=== PATIENT | male | born 1985 | race Caucasian/White ===

== ENCOUNTER 2020-06-18 14:22 | Outpatient (REF) | payer OTHER, SELFPAY | END 2020-06-18 14:23 | disposition home or self-care (01) | LOC: HO.LAB 14:22 | PROVIDERS: Visit Provider Internal Medicine | DX: Z20.828 Contact with and (suspected) exposure to other viral communicable diseases (principal) | CPT/HCPCS: 36415; C9803; U0003 ==

== ENCOUNTER → 2020-07-30 15:07 | Outpatient (BNVA) | payer OTHER, SELFPAY | PROVIDERS: PCP Internal Medicine; Visit Provider Urology ==

== ENCOUNTER → 2020-08-28 14:43 | Outpatient (BNVA) | payer OTHER, SELFPAY | PROVIDERS: PCP Internal Medicine; Visit Provider Urology | DX: N35.919 Unspecified urethral stricture, male, unspecified site (principal) | CPT/HCPCS: 52000; 99212 ==

== ENCOUNTER 2020-09-10 09:50 | Outpatient (REF) | payer OTHER, SELFPAY ==
[2020-09-10 12:30] LABS: SARS COV2 PCR INHOUSE NEGATIVE (Negative)
== END 2020-09-10 09:51 | disposition home or self-care (01) ==
LOC: HO.LAB 09:50
PROVIDERS: Visit Provider Internal Medicine
DX: Z20.822 Contact with and (suspected) exposure to COVID-19 (principal)
CPT/HCPCS: C9803; U0003

== ENCOUNTER 2020-09-24 14:20 | Outpatient (REF) | payer OTHER, SELFPAY ==
[2020-09-24 14:52] LABS: COVID-19 Test Negative (Negative); IDNOW Serial# 55D5AD1C
== END 2020-09-24 14:21 | disposition home or self-care (01) ==
LOC: HO.LAB 14:20
PROVIDERS: Visit Provider Internal Medicine
DX: Z20.822 Contact with and (suspected) exposure to COVID-19 (principal)
CPT/HCPCS: 36415; 87635; C9803

== ENCOUNTER 2020-10-03 12:38 | Outpatient (REF) | payer OTHER, SELFPAY ==
[2020-10-03 13:31] LABS: COVID-19 Test Positive (Negative)
== END 2020-10-03 12:39 | disposition home or self-care (01) ==
LOC: HO.LAB 12:38
PROVIDERS: Visit Provider Internal Medicine
DX: Z20.822 Contact with and (suspected) exposure to COVID-19 (principal)
CPT/HCPCS: 36415; 87635; C9803

== ENCOUNTER 2020-10-11 12:53 | Outpatient (REF) | payer OTHER, SELFPAY ==
[2020-10-11 13:12] LABS: COVID-19 Test Negative (Negative)
== END 2020-10-11 12:54 | disposition home or self-care (01) ==
LOC: HO.LAB 12:53
PROVIDERS: Visit Provider Internal Medicine
DX: Z20.822 Contact with and (suspected) exposure to COVID-19 (principal)
CPT/HCPCS: 36415; 87635; C9803

== ENCOUNTER 2021-04-23 09:33 | Outpatient (REF) | payer OTHER, SELFPAY ==
[2021-04-23 09:52] LABS: MANUAL DIFF FLAG NO
[2021-04-23 10:30] LABS: Basophils Percent Auto 0.5 % (0-2); Eosinophils Absolute Auto 0.2 X10*3/uL (0.0-0.4); Hematocrit 43.1 % (42.0-52.0); Imm Gran Abs Auto 0.03 X10*3/uL (0.00-0.03); Imm Gran Pct Auto 0.3 % (0.0-0.4); Lymphocytes Absolute Auto 3.2 X10*3/uL (1.2-4.9); Lymphocytes Percent Auto 37.3 % (20-40); Mean Corpuscular HGB Conc 34.8 g/dl (31.0-36.0); Mean Corpuscular Hemoglobin 31.8 pg (27.0-33.0); Mean Corpuscular Volume 91.3 fL (80.0-98.0); Mean Platelet Volume 9.5 fL (9.4-12.4); Monocytes Absolute Auto 0.7 X10*3/uL (0.1-1.2); Monocytes Percent Auto 8.3 % (2-11); Neutrophils Absolute Auto 4.5 x10*3/uL (2.0-8.3); Neutrophils Percent Auto 51.6 % (45-73); Platelet Count 318 X10*3/uL (160-400); Red Blood Count 4.72 X10*6/uL (4.60-5.80); Red Cell Distribution Width 12.9 % (11.0-16.0); White Blood Count 8.7 X10*3/uL (4.8-10.8)
[2021-04-23 10:47] LABS: Estimated Average Glucose 94 mg/dL; Hemoglobin A1c % 4.9 %
[2021-04-23 10:50] LABS: Alanine Aminotransferase 14 U/L (0-40); Albumin Level 4.6 g/dL (3.5-5.0); Alkaline Phosphatase 54 U/L (39-117); Anion Gap 11 (12-20); Aspartate Amino Transferase 15 U/L (5-37); Bilirubin Total 0.8 mg/dL (0.0-1.0); Blood Urea Nitrogen 10 mg/dL (9-16); Calcium 9.7 mg/dL (8.4-10.2); Carbon Dioxide 29 mmol/L (22-29); Chloride 105 mmol/L (96-108); Cholesterol 187 mg/dL; Estimated Glomerular Filt Rate > 60; Glucose Random 98 mg/dL (60-115); HDL Cholesterol 45 mg/dL; LDL Cholesterol Calculated 121 mg/dl; Potassium 4.6 mmol/L (3.3-5.1); Sodium 140 mmol/L (135-145); Total Protein 7.2 g/dL (6.5-8.0); Triglycerides 109 mg/dL
[2021-04-23 11:03] LABS: Free T4 (Free Thyroxine) 0.89 ng/dL (0.71-1.85); Thyroid Stimulating Hormone 1.51 uIU/mL (0.32-4.0)
[2021-04-23 11:27] LABS: Folate > 20.0 ng/mL (> or = 4.0); Vitamin B12 599 pg/mL (200-900)
== END 2021-04-23 09:34 | disposition home or self-care (01) ==
LOC: HO.LAB 09:33
PROVIDERS: PCP Internal Medicine; Visit Provider Internal Medicine
DX: R73.02 Impaired glucose tolerance (oral) (principal); E78.00 Pure hypercholesterolemia, unspecified
CPT/HCPCS: 36415; 80053; 80061; 82607; 82746; 83036; 84439; 84443; 85025

== ENCOUNTER 2022-01-22 09:53 | Outpatient (REF) | payer OTHER, SELFPAY ==
[2022-01-22 10:06] LABS: MANUAL DIFF FLAG NO
[2022-01-22 10:38] LABS: Basophils Percent Auto 0.3 % (0-2); Eosinophils Absolute Auto 0.1 X10*3/uL (0.0-0.4); Eosinophils Percent Auto 1.7 % (0-4); Hematocrit 43.1 % (42.0-52.0); Hemoglobin 14.7 g/dl (14.0-18.0); Imm Gran Abs Auto 0.01 X10*3/uL (0.00-0.03); Imm Gran Pct Auto 0.2 % (0.0-0.4); Lymphocytes Percent Auto 31.3 % (20-40); Mean Corpuscular HGB Conc 34.1 g/dl (31.0-36.0); Mean Corpuscular Volume 90.9 fL (80.0-98.0); Mean Platelet Volume 9.3 fL (9.4-12.4); Monocytes Absolute Auto 0.5 X10*3/uL (0.1-1.2); Monocytes Percent Auto 7.8 % (2-11); Neutrophils Absolute Auto 3.8 x10*3/uL (2.0-8.3); Neutrophils Percent Auto 58.7 % (45-73); Platelet Count 316 X10*3/uL (160-400); Red Blood Count 4.74 X10*6/uL (4.60-5.80); Red Cell Distribution Width 12.8 % (11.0-16.0); White Blood Count 6.4 X10*3/uL (4.8-10.8)
[2022-01-22 10:44] LABS: Estimated Average Glucose 97 mg/dL
[2022-01-22 10:52] LABS: Appearance Urine CLEAR; Color Urine YELLOW; Glucose Urine UA NEG (NEG); Leukocyte Esterase Urine NEG (NEG); Nitrite Urine NEG (NEG); PH 8.5 (5.0-8.0); Specific Gravity - Urine 1.015 (1.005-1.025); Urine Blood NEG (NEG); Urine Ketones NEG (NEG); Urine Protein NEG (NEG-TRACE)
[2022-01-22 11:01] LABS: Squamous Epithelial Cell Urine TRACE /LPF
[2022-01-22 11:02] LABS: RBC Urine 0-2 /HPF (0); WBC Urine 0 /HPF (0-4)
[2022-01-22 11:13] LABS: Alanine Aminotransferase 13 U/L (0-40); Albumin Level 4.4 g/dL (3.5-5.0); Anion Gap 12 (12-20); Aspartate Amino Transferase 14 U/L (5-37); Bilirubin Total 0.6 mg/dL (0.0-1.0); Blood Urea Nitrogen 9 mg/dL (9-16); Calcium 8.9 mg/dL (8.4-10.2); Carbon Dioxide 26 mmol/L (22-29); Chloride 105 mmol/L (96-108); Estimated Glomerular Filt Rate > 60; Glucose Random 98 mg/dL (60-115); Potassium 4.6 mmol/L (3.3-5.1); Sodium 138 mmol/L (135-145); Total Protein 6.8 g/dL (6.5-8.0); Triglycerides 91 mg/dL
[2022-01-22 11:14] LABS: Alkaline Phosphatase 49 U/L (39-117); Cholesterol 175 mg/dL; HDL Cholesterol 48 mg/dL; LDL Cholesterol Calculated 109 mg/dl
== END 2022-01-22 09:54 | disposition home or self-care (01) ==
LOC: HO.LAB 09:53
PROVIDERS: PCP Internal Medicine; Visit Provider Internal Medicine
DX: E66.3 Overweight (principal); R31.9 Hematuria, unspecified; E78.00 Pure hypercholesterolemia, unspecified; R73.02 Impaired glucose tolerance (oral)
CPT/HCPCS: 36415; 80053; 80061; 81001; 83036; 85025

== ENCOUNTER 2023-01-25 08:40 | Outpatient (AMB) | payer OTHER, SELFPAY ==
[2023-01-25 08:43] VITALS: BP 102/68; PULSE 61; O2SAT 99; BMI 29.1
--- NOTE | 2023-01-25 08:43 | A.OFFPC_ITS ---
Vital Signs 01/25/23 08:43 Height 5 ft 6 in Weight 180 lb 0.4 oz BMI 29.1 BP 102/68 Blood Pressure Location Lt brachial Position Sitting Pulse 61 Pulse Source Pulse Oximeter Temp Source Skin Pulse Oximetry (%) 99 Oxygen Delivery Method Room Air Intake Visit Reasons: Annual exam Intake Note: Patient is here today for a physical. 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 Patient has complained of bilateral hand numbness and nerve conduction test was requested. Patient is here for follow-up. R ankle pain- 6 weeks and had hematoma. walking up and down stairs- xray requested. laceration R periorbital area [facility] Medical History Alcohol abuse GERD (gastroesophageal reflux disease) Polysubstance abuse Surgical History History of abdominal surgery Family History Father Medical history unknown Mother Medical history unknown Maternal Grandfather Throat cancer Maternal Uncle Gastric cancer Sister In good health Family/Other Depression Social History (Updated 01/25/23 @ 09:05 by Shawn Licona MD) Housing: Apartment Alcohol intake: current Alcohol intake frequency: holidays/special occasions only Patient Tobacco Use Status: Current someday Tobacco user Tobacco use type: Cigarette Cigarettes Per Day: 1 Years Smoked: a week 2 cigarettes aday e-Cigarette/Vaping Use: Never Used Second Hand Smoke Exposure: No service: No Current occupational status: employed Current occupational exposures/hazards: No Cognitive needs: No Hearing needs: No Vision needs: No Questionnaire PHQ-9 Over the last 2 weeks, how often have you been bothered by any of the following problems? 1. Little interest or pleasure in doing things: not at all 2. Feeling down, depressed, or hopeless: not at all 3. Trouble falling or staying asleep, or sleeping too much: not at all 4. Feeling tired or having little energy: not at all 5. Poor appetite or overeating: not at all 6. Feeling bad about yourself - or that you are a failure or have let yourself or your family down: not at all 7. Trouble concentrating on things, such as reading the newspaper or watching television: not at all 8. Moving or speaking so slowly that other people could have noticed. Or the opposite - being so fidgety or restless that you have been moving around a lot more than usual: not at all 9. Thoughts that you would be better off or of hurting yourself in some way: not at all Total score: 0 Depression Screening Interpretation: Negative Source: Developed by Drs. Mamadou Alcala, Maeve Vidal, Gilberto Acosta and colleagues, with an educational francesco from [email or web address]. Thrive Questionnaire Date Thrive assessed: 01/25/23 I am a: Patient What is your living situation today?: I have a steady place to live Within the past 12 months, did the food you bought not last and you didn't have the money to get more?: Never true Within the past 12 months, did you worry whether your food would run out before you got money to buy more?: Never true Do you have trouble paying for medicines?: No Do you have trouble getting transportation to medical appointments?: No Do you have trouble paying your heating and electricity bill?: No Do you have trouble taking care of your child, family member or friend?: No Do you have trouble with day-to-day activities such as bathing, preparing meals, shopping, managing finances, etc.?: No Are you currently unemployed and looking for a job?: No Are you interested in more education?: No AUDIT C Alcohol Use Questionnaire (AUDIT-C) 1. How often do you have a drink containing alcohol?: 2-3 times a week 2. How many drinks containing alcohol do you have on a typical day when you are drinking?: 1 or 2 3. How often do you have six or more drinks on one occasion?: Never Total Score: 3 MARLA-7 AMB Questionnaire MARLA-7 Date MARLA - 7 assessed: 01/25/23 Feeling nervous, anxious, or on edge: 0 = Not at all Not being able to stop or control worryin = Not at all Worrying too much about different things: 0 = Not at all Trouble relaxin = Not at all Being so restless that it is hard to sit still: 0 = Not at all Becoming easily annoyed or irritable: 0 = Not at all Feeling afraid as if something awful might happen: 0 = Not at all Total MARLA-7 score (0-4 normal; 5-9 mild; 10-14 moderate; 15-21 severe): 0 Source: Developed by Drs. Mamadou Alcala, Maeve Vidal, Gilberto Acosta and colleagues, with an educational francesco from [email or web address]. Review of Systems Const Denies poor appetite and Denies weakness Eyes Denies no additional complaints ENT Reports Normal hearing present, Denies dizziness, Denies nasal congestion, Denies tinnitus and Denies sore throat Card Denies chest pain, Denies syncope, Denies rapid heart rate and Denies dyspnea Resp Denies cough and Denies dyspnea GI Denies change in stool character, Reports constipation, Denies diarrhea, Denies nausea and Denies vomiting Denies dysuria and Denies urinary frequency Neuro Reports Normal hearing present, Denies confusion, Denies dizziness, Denies syncope and Denies weakness Psych Denies confusion Physical exam (Primary Care) Vital Signs: Oxygen Delivery Method Room Air 01/25/23 08:43 BMI result Body Mass Index 29.1 Tobacco/Smoking Status: Tobacco use Status Tobacco use date assessed 01/25/23 01/25/23 08:44 Patient Tobacco Use Status Current everyday Tobacco 01/25/23 08:44 Tobacco use type Cigarette 01/25/23 08:44 e-Cigarette/Vaping Use Never Used 01/25/23 08:44 PHQ-9: PHQ-9 Score PHQ-9: Total score 0 01/25/23 08:44 Depression Screening Interpretation: Negative Thrive Assessment: Date of Thrive Assessment Date Thrive assessed 01/25/23 01/25/23 08:44 Const General: No confusion Orientation/consciousness: No confusion HENMT Head: Yes normocephalic Ears: external ears normal and TM's normal bilaterally Face and sinus: Yes normal facial exam Mouth: moist mucous membranes Throat: Yes tonsils normal Eyes Conjunctivae: conjunctivae normal Pupils: Equal, round and reactive pupils present and Pupil accommodation reflex normal Direct Ophthalmoscopy: normal light reflex Neck Neck: No lymphadenopathy Thyroid: Thyroid normal Chest Chest palpation & inspection: normal inspection of the chest Resp Effort & Inspection: normal respiratory effort and no audible wheezes Auscultation: clear to auscultation bilaterally, no crackles, no wheezes and lung sounds not diminished Cardio Rate: regular rate Rhythm: regular rhythm Peripheral pulses: radial pulses present and dorsalis pedis present GI Other: visual negative examrectal Palpation (GI): no masses Auscultation: normal bowel sounds and normoactive bowel sounds Rectal Exam - Male: Yes deferred Male General Exam: Yes normal external exam Skin General skin exam: no rashes or lesions noted Rashes: no rashes Neuro General: No confusion Cranial nerves: Yes Equal, round and reactive pupils present and Yes Normal hearing present Cognition (Neuro): normal cognition Gait exam (Neuro): Normal gait present Motor exam (neuro): 5/5 motor strength present throughout Deep tendon reflexes (DTR's): Right brachioradialis reflex intensity grade: 2+, Left brachioradialis reflex intensity grade: 2+, Right patellar reflex intensity grade: 2+ and Left patellar reflex intensity grade: 2+ Extrem General: No edema Assessment and Plan Assessment & Plan (1) Annual physical exam: Code(s): Z00.00 - Encounter for general adult medical examination without abnormal findings (2) Tobacco abuse: Code(s): Z72.0 - Tobacco use Plan: Patient is strongly advised to stop smoking! (3) Overweight (BMI 25.0-29.9): Code(s): E66.3 - Overweight Plan: Diet and exercise noted within (4) GERD (gastroesophageal reflux disease): Code(s): K21.9 - Gastro-esophageal reflux disease without esophagitis Plan: Avoid the foods that causes that usually spicy foods, tomato products, juices, coffee, soda and foods that your sensitive to. After eating do not lie down, allow 3-4 hours before in lie down. And keep the head of bed above 30 degrees to avoid the acid from going up. (5) Hand numbness: Code(s): R20.0 - Anesthesia of skin Plan: decline testing for now but knows to call and have the test done (6) Right ankle pain: Code(s): M25.571 - Pain in right ankle and joints of right foot Plan: decline physical therapy for now- xray requeted, discussed heat and stretches. Orders: Orders XR ankle RT 2V Today M25.571 - Pain in right ankle and joints of right foot Coding Level of Care Code Est Pt Prev Care [id number]([id number]) Diagnoses Annual physical exam Z00.00 Tobacco abuse Z72.0 Overweight (BMI 25.0-29.9) E66.3 GERD (gastroesophageal reflux disease) K21.9 Hand numbness R20.0 Right ankle pain M25.571
== END 2023-01-25 09:20 | disposition home or self-care (01) ==
PROVIDERS: PCP Internal Medicine; Visit Provider Internal Medicine
DX: Z00.00 Encounter for general adult medical examination without abnormal findings (principal); Z72.0 Tobacco use; E66.3 Overweight; K21.9 Gastro-esophageal reflux disease without esophagitis; R20.0 Anesthesia of skin; M25.571 Pain in right ankle and joints of right foot
CPT/HCPCS: 99395

== ENCOUNTER 2023-01-25 09:31 | Outpatient (REF) | payer OTHER, SELFPAY ==
--- NOTE | ~2023-01-25 | XR_ITS ---
EXAMINATION: XR ANKLE, RIGHT CLINICAL INFORMATION: Pain in the lateral right ankle and joints of foot COMPARISON: None TECHNIQUE: AP, lateral, and mortise views of the right ankle. FINDINGS: Radiopaque marker was placed by the technologist to indicate the area of concern as indicated by the patient along the lateral malleolus. Ankle joint effusion. Moderate diffuse soft tissue swelling. Small corticated ossicles posterior to the talus. Spurring along the inferior aspect of the medial malleolus. XR/XR ankle RT 2V IMPRESSION: Small corticated ossicles posterior to the talus. Spurring along the inferior aspect of the medial malleolus. Recommend follow-up imaging in 10-14 days if fracture is suspected. Additional imaging with CT scan or MRI should be considered for better visualization as these modalities are much more sensitive for detection of fracture or other underlying pathology.
== END 2023-01-25 09:32 | disposition home or self-care (01) ==
LOC: HO.XRAY 09:31
PROVIDERS: PCP Internal Medicine; Visit Provider Internal Medicine
DX: M25.571 Pain in right ankle and joints of right foot (principal)
CPT/HCPCS: 73600

== ENCOUNTER 2023-06-08 16:13 | Emergency (ER) | payer OTHER, SELFPAY ==
--- NOTE | ~2023-06-08 | XR_ITS ---
EXAMINATION: XR RIGHT FOOT, 3 VIEWS XR RIGHT ANKLE, 2 VIEWS CLINICAL INFORMATION: Right ankle pain status post fall COMPARISON: Right ankle radiograph from 01/25/2023 TECHNIQUE: 3 views of the right foot 2 views of the right ankle FINDINGS: Very subtle ossific focus measuring 1 mm along the medial malleolus may reflect sequela of trauma, chronicity indeterminate. Ankle mortise is symmetric. Joint spaces and alignment are maintained. Slight soft tissue prominence about the ankle. XR/XR ankle RT min 3V IMPRESSION: 1. Very subtle ossific focus measuring 1 mm along the medial malleolus may reflect sequela of trauma, chronicity indeterminate. Correlation with physical exam. 2. Slight soft tissue prominence about the ankle. 3. Otherwise no acute displaced fracture identified.
--- NOTE | ~2023-06-08 | XR_ITS ---
EXAMINATION: XR RIGHT FOOT, 3 VIEWS XR RIGHT ANKLE, 2 VIEWS CLINICAL INFORMATION: Right ankle pain status post fall COMPARISON: Right ankle radiograph from 01/25/2023 TECHNIQUE: 3 views of the right foot 2 views of the right ankle FINDINGS: Very subtle ossific focus measuring 1 mm along the medial malleolus may reflect sequela of trauma, chronicity indeterminate. Ankle mortise is symmetric. Joint spaces and alignment are maintained. Slight soft tissue prominence about the ankle. XR/XR foot RT min 3V IMPRESSION: 1. Very subtle ossific focus measuring 1 mm along the medial malleolus may reflect sequela of trauma, chronicity indeterminate. Correlation with physical exam. 2. Slight soft tissue prominence about the ankle. 3. Otherwise no acute displaced fracture identified.
[2023-06-08 17:01] VITALS: BP 140/63; PULSE 73; RESP 20; TEMP 36.8; O2SAT 98; BMI 41.6
--- NOTE | 2023-06-08 17:01 | ED_ITS ---
HPI - Extremity Injury (Lower) General Chief Complaint: Extremity Injury, Lower Stated Complaint: R ankle pain, work injury Time Seen by Provider: 06/08/23 19:53 Source: patient Mode of arrival: ambulatory Limitations: no limitations History of Present Illness HPI Narrative: 37-year-old male with pmhx significant for GERD, polysubstance abuse, presents to ED today for evaluation of right ankle pain s/p stepping out of [employer] truck and rolling his right ankle 5 days ago. Reports pain to the medial aspect of ankle/heel. He is able to bear weight on right foot. Has been icing and elevating the ankle. Denies taking anything for the pain at home. Reports rolling this ankle back in January, had x-rays, never heard back about results. Denies fever, chills, numbness/tingling/weakness of the right lower extremity. Related Data Home Medications Medication Instructions Recorded Confirmed No Known Home Meds 04/24/21 01/25/23 Allergies Allergy/AdvReac Type Severity Reaction Status Date / Time No Known Allergies Allergy Verified 06/08/23 17:04 Review of Systems Review of Systems: Constitutional: No fever, chills, fatigue, night sweats, weight changes ENT/Mouth: No ear pain, hearing loss, nasal congestion, sinus pain, rhinorrhea, sore throat Eyes: No eye pain, swelling, redness, vision changes, discharge Cardio: No chest pain, palpitations, MOSES, orthopnea, peripheral edema Pulm: No SOB, cough, sputum, wheezing, dyspnea, hemoptysis GI: No nausea, vomiting, hematemesis, abdominal pain, diarrhea, constipation, hematochezia, melena : No irregular bleeding, dysuria, frequency, urgency, hesitancy, hematuria, flank pain, urinary flow changes, urinary incontinence or retention MSK: No back pain, neck pain, joint pain, myalgias, +right ankle pain Skin: No lesions, rashes Neuro: No weakness, numbness, paresthesias, LOC, dizziness, headache All other systems reviewed and are negative. [facility] Past Medical History Attestation statement: The following information was validated with the patient. Source: old records reviewed and nursing notes reviewed Medical History GERD (gastroesophageal reflux disease) Alcohol abuse Polysubstance abuse Surgical History History of abdominal surgery Family History Family History Father Medical history unknown Mother Medical history unknown Maternal Grandfather Throat cancer Maternal Uncle Gastric cancer Sister In good health Family/Other Depression Social History Social History Housing: Apartment Alcohol intake: current Alcohol intake frequency: holidays/special occasions only Patient Tobacco Use Status: Current someday Tobacco user Tobacco use type: Cigarette Cigarettes Per Day: 1 Years Smoked: a week 2 cigarettes aday Smoked in Last 30 Days: No e-Cigarette/Vaping Use: Never Used Second Hand Smoke Exposure: No Advance Directives: No Advance Directives Information Provided: No service: No Current occupational status: employed Current occupational exposures/hazards: No Cognitive needs: No Hearing needs: No Vision needs: No Physical Exam Vital Signs: Vital Signs: Last Vital Signs Temp 98.2 F 06/08/23 20:47 Pulse 79 06/08/23 20:47 Resp 18 06/08/23 20:47 BP 139/78 06/08/23 20:47 Pulse Ox 99 06/08/23 20:47 O2 Del Method Room Air 06/08/23 20:47 BMI result Body Mass Index 41.6 vital signs notable for hypertension Const: General: cooperative, healthy appearing, comfortable, no acute distress, alert and awake Orientation/consciousness: patient oriented x3 Limitations: no limitations Eyes: General: appearance normal, both eyes and all related structures Resp: Effort & Inspection: normal respiratory effort Auscultation: clear to auscultation bilaterally Cardio: Other: + 2+ dp/pt pulses b/l Rate: regular rate Rhythm: regular rhythm Skin: General skin exam: no rashes or lesions noted Neuro: General: patient oriented x3, gait normal and moves all extremities Extrem: Other: + minimal ecchymosis noted to the right ankle just below the medial malleolus. No obvious deformity. Full ROM intact to right ankle. No warmth or fluctuance. No tenderness to palpation over the medial or lateral malleolus. No tenderness over the base of the 5th mcp. 2+ PT/DP pulses sensation intact to light touch. No calf tenderness. General: Yes normal exam except as noted Course Course Course Narrative: 2014-- XR right ankle/foot without acute fracture or dislocation. Informed patient of results. Educated on RICE treatment. will provide patient with ortho referral for follow up if symptoms do not improve. Patient has remained stable throughout ED visit today and is ambulating with steady gait. Discussed strict return precautions. All questions answered at this time. Patient is agreeable with disposition and stable for discharge. Medical Decision Making Medical Decision Making [facility] Narrative: 37-year-old male with pmhx significant for GERD, polysubstance abuse, presents to ED today for evaluation of right ankle pain s/p stepping out of [employer] truck and rolling his right ankle 5 days ago. Patient is noted to be hypertensive to 140/63. Denies chest pain, PAULINO, dizziness. Vitals otherwise wnl. He is nontoxic appearing in no acute distress. He is ambulating with steady gait. On exam there is a minimal ecchymosis noted to the right ankle just below the medial malleolus. No obvious deformity. Full ROM intact to right ankle. No warmth or fluctuance. No tenderness to palpation over the medial or lateral malleolus. No tenderness over the base of the 5th mcp. 2+ PT/DP pulses sensation intact to light touch. No calf tenderness. Clinical concern for MSK sprain/strain, fracture, dislocation. Unlikely DVT, neurovascular compromise, Charcot foot, compartment syndrome, threat to limb. Plan for imaging and re-evaluation. Differential Diagnosis Differential Diagnoses: The differential diagnosis associated with the p resentation includes as above. Admission/Observation not indicated. Consult Healthcare Provider Management of the patient was discussed with: Insurance Associate (orthopedic PA, Trudy Bustos) Independent Interpretation I performed an independent interpretation of an: Plain X-Ray Interpretation: XR right ankle/ foot without acute fracture or dislocation, agree with radiologist's interpretation. Radiology Impression Discussion of test interpretation with radiology: I have reviewed the radiologist's reading. Radiologist Impression: XR foot RT min 3V IMPRESSION: 1. Very subtle ossific focus measuring 1 mm along the medial malleolus may reflect sequela of trauma, chronicity indeterminate. Correlation with physical exam. 2. Slight soft tissue prominence about the ankle. 3. Otherwise no acute displaced fracture identified. External Record Review External record reviewed: Inpatient record Prescription Management I considered prescription management with: Pain Medication Critical Care Time Critical Care Time Critical Care Time: No Discharge Plan Discharge Clinical Impression: Right ankle sprain Patient Disposition: Home, Self-Care Instructions: Sprain (ED), R.I.C.E. Treatment (ED) Additional Instructions: Your xrays do not demonstrate acute fracture or dislocation. You likely have an ankle sprain. Use ice several times per day for 20 minutes at a time for the next 48 hours. You may take tylenol/ ibuprofen as needed for pain/ discomfort. Follow up with your primary care provider as needed You may follow up with ortho if symptoms persist. A referral has been provided to you. You may call them to make an appointment. If your pain worsens, if you develop new numbness, tingling, weakness, loss of bowel or bladder function call 911 or return to the ER immediately for evaluation. Prescriptions: No Action No Known Home Meds Referrals: [facility] Orthopedic Surgeons [Provider Group] Stand Alone Forms: Work/School Release Interventions: ED Discharge Assessment Last Done: 06/08/23 20:48 Discharge Date/Time: 06/08/23 20:49
[2023-06-08 20:47] VITALS: BP 139/78; PULSE 79; RESP 18; TEMP 36.8; O2SAT 99
== END 2023-06-08 20:49 | disposition home or self-care (01) ==
PROVIDERS: Emergency Provider Emergency Medicine; PCP Internal Medicine
DX: S93.401A Sprain of unspecified ligament of right ankle, initial encounter (principal); M25.571 Pain in right ankle and joints of right foot; F17.210 Nicotine dependence, cigarettes, uncomplicated; X50.1XXA Overexertion from prolonged static or awkward postures, initial encounter; Y93.9 Activity, unspecified; Y92.9 Unspecified place or not applicable; Y99.0 Civilian activity done for income or pay; Z71.6 Tobacco abuse counseling
CPT/HCPCS: 73610; 73630; 99283; 99284

== ENCOUNTER 2025-05-08 10:44 | Outpatient (AMB) | payer BC, SELFPAY ==
[2025-05-08 10:47] VITALS: BP 142/68; PULSE 67; TEMP 36.4; O2SAT 99; BMI 27.7
--- NOTE | 2025-05-08 10:47 | A.OFFPC_ITS ---
Vital Signs 05/08/25 10:47 05/08/25 10:57 Height 5 ft 5 in Weight 166 lb 8 oz BMI 27.7 BP 142/68 H 108/60 Blood Pressure Location Lt brachial Lt brachial Position Sitting Sitting Pulse 67 Pulse Source Pulse Oximeter Temp 97.5 F Temp Source Temporal Artery Scan Pulse Oximetry (%) 99 Oxygen Delivery Method Room Air Intake Visit Reasons: Review lab work / high protein Allergies No Known Allergies Allergy (Verified 05/08/25 10:50) Tobacco use date assessed: 05/08/25 Dental Screening Dental Screen Date: 05/08/25 Did you have a dental visit in the last 12 months?: No Did you have a dental problem in the last 6 months where you did not have access to dental care?: No Was dental information given to patient?: No HPI Review lab work / high protein HPI Details Went to DOT PE and was told to see Primary Urine showig trace blood and protein in the urine HPI Comments History of Present Illness Details History of Present Illness The patient is a 39 year old individual presenting for follow-up evaluation after 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 The urinalysis showed trace amounts of non-heme blood and protein. The patient reports a similar episode of hematuria in 2019, which resolved on follow-up testing. Past medical history is notable for being overweight, gastroesophageal reflux disease (GERD), and generalized anxiety disorder. In 2022, the patient had an emergency room visit for a right ankle sprain from a work injury, which was treated conservatively. There is also a history of a urethral stricture, for which the patient was referred to urology in 2020 but did not complete the follow-up. Blood work from 2021 showed normal blood count, electrolytes, renal function, blood sugar, liver function, and cholesterol levels. The patient is a current smoker, stating that smoking occurs primarily during times of stress, and has requested help with cessation. The patient works seven days a week, reports feeling tired, and admits to being dehydrated, consuming energy drinks and sweets, and not drinking enough water. The patient has lost over 30 pounds in the past year. Health Maintenance The patient was counseled on lifestyle modifications. This includes improving hydration by drinking 6-8 glasses of water daily, eating a healthy diet, and reducing intake of sweets and energy drinks. Follow-up is scheduled in one month to review test results and progress. 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 - Substance Use: Smokes cigarettes, gina cially when stressed, and desires help to quit. Acknowledges consuming energy drinks. Does not drink alcohol. - Nutrition: Reports consuming a lot of sweets and feels dehydrated from not drinking enough water. - Supplements: Takes Shilajit pills, whi ch contain turmeric. Results - Urinalysis (from DOT physical yesterda y): Positive for trace non-heme blood and trace protein. - Labs (from 2021): Normal blood count, electrolytes, renal function, blood sugar, liver function, and cholesterol. [facility] Medical History GERD (gastroesophageal reflux disease) Alcohol abuse Polysubstance abuse Surgical History History of abdominal surgery Family History Father Medical history unknown Mother Medical history unknown Maternal Grandfather Throat cancer Maternal Uncle Gastric cancer Sister In good health Family/Other Depression Social History Housing: Apartment Alcohol intake: current Alcohol intake frequency: holidays/special occasions only Patient Tobacco Use Status: Current someday Tobacco user Tobacco use type: Cigarette Cigarettes Per Day: 1 Years Smoked: a week 2 cigarettes aday e-Cigarette/Vaping Use: Never Used Second Hand Smoke Exposure: No service: No Current occupational status: employed Current occupational exposures/hazards: No Cognitive needs: No Hearing needs: No Vision needs: No Questionnaire PHQ-9 Over the last 2 weeks, how often have you been bothered by any of the following problems? 1. Little interest or pleasure in doing things: not at all 2. Feeling down, depressed, or hopeless: not at all 3. Trouble falling or staying asleep, or sleeping too much: nearly every day 4. Feeling tired or having little energy: not at all 5. Poor appetite or overeating: not at all 6. Feeling bad about yourself - or that you are a failure or have let yourself or your family down: not at all 7. Trouble concentrating on things, such as reading the newspaper or watching television: not at all 8. Moving or speaking so slowly that other people could have noticed. Or the opposite - being so fidgety or restless that you have been moving around a lot more than usual: not at all 9. Thoughts that you would be better off or of hurting yourself in some way: not at all Total score: 3 Depression Screening Interpretation: Positive Depression Screening Done: Yes [id number] - PHQ-9 Billing: Yes Source: Developed by Drs. Mamadou Alcala, Maeve Vidal, Gilberto Acosta and colleagues, with an educational francesco from [employer]. Thrive Questionnaire Date Thrive assessed: 05/08/25 I am a: Patient What is your living situation today?: I have a steady place to live Within the past 12 months, did the food you bought not last and you didn't have the money to get more?: I choose not to answer this question Within the past 12 months, did you worry whether your food would run out before you got money to buy more?: I choose not to answer this question Do you have trouble paying for medicines?: I choose not to answer this question Do you have trouble getting transportation to medical appointments?: No Do you have trouble paying your heating and electricity bill?: No Do you have trouble taking care of your child, family member or friend?: I choose not to answer this question Do you have trouble with day-to-day activities such as bathing, preparing meals, shopping, managing finances, etc.?: No Are you currently unemployed and looking for a job?: I choose not to answer this question Are you interested in more education?: I choose not to answer this question Please select the resources that you would like help with: None Currently or been in a relationship where the following occur: I choose not to answer THRIVE Score: 0 AUDIT C Alcohol Use Questionnaire (AUDIT-C) 1. How often do you have a drink containing alcohol?: Monthly or less 2. How many drinks containing alcohol do you have on a typical day when you are drinking?: 1 or 2 3. How often do you have six or more drinks on one occasion?: Never Total Score: 1 MARLA-7 AMB Questionnaire MARLA-7 Date MARLA - 7 assessed: 05/08/25 Feeling nervous, anxious, or on edge: 0 = Not at all Not being able to stop or control worryin = Not at all Worrying too much about different things: 0 = Not at all Trouble relaxin = Not at all Being so restless that it is hard to sit still: 0 = Not at all Becoming easily annoyed or irritable: 0 = Not at all Feeling afraid as if something awful might happen: 0 = Not at all Total MARLA-7 score (0-4 normal; 5-9 mild; 10-14 moderate; 15-21 severe): 0 Source: Developed by Drs. Mamadou Alcala, Maeve Vidal, Gilberto Acosta and colleagues, with an educational francesco from [employer]. Review of Systems Narrative Review of Systems - Constitutional: Reports feeling tired, which is attributed to working 7 days a week. Denies fevers. - Gastrointestinal: Reports one episode of vomiting with an upset stomach about two weeks ago. Denies nausea. Reports normal, formed bowel movements, denies constipation or diarrhea. - Genitourinary: Reports nocturia, waking once nightly to urinate. History of hematuria. - Psychiatric: Reports stress and anxiety triggers smoking. Physical exam (Primary Care) Vital Signs: Last Vital Signs Temp 97.5 F 05/08/25 10:47 Pulse 67 05/08/25 10:47 BP 108/60 05/08/25 10:57 Pulse Ox 99 05/08/25 10:47 Oxygen Delivery Method Room Air 05/08/25 10:47 BMI result Body Mass Index 27.7 Tobacco/Smoking Status: Tobacco use Status Tobacco use date assessed 05/08/25 05/08/25 10:51 Patient Tobacco Use Status Current someday Tobacco 05/08/25 10:51 Tobacco use type Cigarette 05/08/25 10:51 e-Cigarette/Vaping Use Never Used 05/08/25 10:51 PHQ-9: PHQ-9 Score PHQ-9: Total score 3 05/08/25 10:57 Depression Screening Interpretation: Positive Thrive Assessment: Date of Thrive Assessment Date Thrive assessed 05/08/25 05/08/25 10:51 Currently or been in a relationship where the following occur: I choose not to answer Narrative Physical Exam - Vitals: Blood pressure is normal. Patient reports pulse and oxygen saturation were normal on an exam yesterday. - Lungs: Auscultation performed. Const General: alert; No acute distress Eyes Conjunctivae: conjunctivae normal Resp Auscultation: clear to auscultation bilaterally Cardio Rate: regular rate Rhythm: regular rhythm GI Inspection: Yes normal to inspection Extrem General: Yes normal to inspection and No edema Coding Level of Care Code Est Pt Level 4 (07293) Diagnoses Tobacco abuse Z72.0 GERD (gastroesophageal reflux disease) K21.9 Overweight (BMI 25.0-29.9) E66.3 Generalized anxiety disorder F41.1 Hematuria R31.9 Proteinuria R80.9 Additional Codes PHQ-9 - 23490 - PHQ-9 Billing: Yes ([id number]) Assessment & Plan Assessment & Plan (1) Tobacco abuse: Code(s): Z72.0 - Tobacco use Category: Medical Plan: Patient is strongly advised to stop smoking (2) GERD (gastroesophageal reflux disease): Code(s): K21.9 - Gastro-esophageal reflux disease without esophagitis Category: Medical Plan: Patient is strongly advised to stop smoking, Avoid the foods that causes that usually spicy foods, tomato products, juices, coffee, soda and foods that your sensitive to. After eating do not lie down, allow 3-4 hours before in lie down. And keep the head of bed above 30 degrees to avoid the acid from going up. (3) Overweight (BMI 25.0-29.9): Code(s): E66.3 - Overweight Category: Medical Plan: Diet and exercise (4) Generalized anxiety disorder: Code(s): F41.1 - Generalized anxiety disorder Category: Medical Plan: Discussion about counseling and therapy (5) Hematuria: Code(s): R31.9 - Hematuria, unspecified Category: Medical (6) Proteinuria: Code(s): R80.9 - Proteinuria, unspecified Category: Medical Plan Plan Patient was informed and verbally consented to the use of an ambient scribe for clinic note documentation during this visit. 1. Proteinuria And Hematuria The patient presents with trace proteinuria and non-heme hematuria on a recent urinalysis. A workup will be initiated to determine the etiology. The plan includes ordering fasting blood work, a repeat urinalysis, and an ultrasound of the kidneys and bladder. Potential benign causes such as dehydration were discussed, and the patient was counseled on increasing water intake. If results indicate a significant kidney problem or stones, a referral to a ammonia refrigeration technician will be considered. 2. Tobacco Use Disorder The patient continues to smoke, primarily as a response to stress and anxiety. The patient was strongly advised to stop smoking. The plan involves addressing the underlying anxiety, with a discussion about counseling and therapy as a means for smoking cessation. 3. Generalized Anxiety Disorder The patient's smoking is linked to anxiety. It was suggested that treating the anxiety is carl. An offer to refer the patient to a counselor or therapist was made. Discussion Notes I discussed with the patient the abnormal findings of protein and blood in the urine from the recent DOT physical. I explained the plan to investigate these findings, which includes fasting blood work, a repeat urine test, and an ultrasound of the kidneys and bladder. I informed the patient that dehydration can be a cause for such findings and counseled on the importance of drinking more water. We discussed the patient's tobacco use, which is linked to stress, and I strongly advised smoking cessation. I offered a referral for counseling to help manage the underlying anxiety. I will call the patient if there are any significant abnormalities on the test results and a follow-up appointment is scheduled in approximately one month. Patient Instructions - Go for fasting blood work as ordered. - An ultrasound of your kidneys and bladder will be scheduled; please attend this appointment. - You will need to provide another urine sample for testing. - Increase your water intake to at least 6-8 glasses per day to stay hydrated. - Try to eat a healthier diet, reduce your intake of sweets and energy drinks. - You are strongly advised to stop smoking. Consider counseling to help manage stress, which may help you quit. - Schedule a follow-up appointment in about one month. - We will call you if there are any urgent problems with your test results. Orders: Orders Lipid Panel Today E78.00 - Pure hypercholesterolemia, unspecified, R80.9 - Proteinuria, unspecified Thyroid Stimulating Hormone Today R80.9 - Proteinuria, unspecified Free T4 (Free Thyroxine) Today R80.9 - Proteinuria, unspecified Vitamin B12 and Folate Today R80.9 - Proteinuria, unspecified UA CC w/rflx Micro + Cult Today R30.0 - Dysuria, R80.9 - Proteinuria, unspecified US bladder Today R31.9 - Hematuria, unspecified Complete Blood Count Auto Diff Today R80.9 - Proteinuria, unspecified Comprehensive Met. Panel Today R80.9 - Proteinuria, unspecified Total Protein Urine Random Today R80.9 - Proteinuria, unspecified Urine Cytology Today R31.9 - Hematuria, unspecified
[2025-05-08 10:57] VITALS: BP 108/60
== END 2025-05-08 11:18 | disposition home or self-care (01) ==
LOC: HO.HMCH 10:45
PROVIDERS: PCP Internal Medicine; Visit Provider Internal Medicine
DX: Z72.0 Tobacco use (principal); K21.9 Gastro-esophageal reflux disease without esophagitis; E66.3 Overweight; F41.1 Generalized anxiety disorder; R31.9 Hematuria, unspecified; R80.9 Proteinuria, unspecified

== ENCOUNTER → 2025-05-08 10:44 | Outpatient (BNVA) | payer BC, SELFPAY | PROVIDERS: PCP Internal Medicine; Visit Provider Internal Medicine | DX: K21.9 Gastro-esophageal reflux disease without esophagitis (principal); E66.3 Overweight; F41.1 Generalized anxiety disorder; R31.9 Hematuria, unspecified; R80.9 Proteinuria, unspecified; F17.210 Nicotine dependence, cigarettes, uncomplicated; Z68.27 Body mass index [BMI] 27.0-27.9, adult | CPT/HCPCS: 96127 ==

== ENCOUNTER 2025-05-12 07:28 | Outpatient (REF) | payer BC, SELFPAY ==
[2025-05-12 07:45] LABS: MANUAL DIFF FLAG NO
[2025-05-12 09:57] LABS: Hematocrit 45.7 % (42.0-52.0); Hemoglobin 15.3 g/dl (14.0-18.0); Imm Gran Abs Auto 0.03 X10*3/uL (0.00-0.03); Imm Gran Pct Auto 0.3 % (0.0-0.4); Lymphocytes Absolute Auto 3.3 X10*3/uL (1.2-4.9); Mean Corpuscular HGB Conc 33.5 g/dl (31.0-36.0); Mean Corpuscular Hemoglobin 30.5 pg (27.0-33.0); Mean Corpuscular Volume 91.0 fL (80.0-98.0); NRBC Abs Auto 0.000 X10*3/uL (0.0-0.012); NRBC Pct Auto 0.0 /100WBC (0.0-0.2); Platelet Count 348 X10*3/uL (160-400); Red Blood Count 5.02 X10*6/uL (4.60-5.80); White Blood Count 8.8 X10*3/uL (4.8-10.8)
[2025-05-12 10:26] LABS: Appearance Urine Clear; Glucose Urine UA Negative (Negative); PH 7.0 (5.0-9.0); Specific Gravity - Urine 1.015 (1.005-1.025)
[2025-05-12 10:42] LABS: Alanine Aminotransferase 26 U/L (0-40); Albumin Level 4.7 g/dL (3.5-5.0); Alkaline Phosphatase 55 U/L (39-117); Anion Gap 11 (12-20); Aspartate Amino Transferase 18 U/L (5-37); Blood Urea Nitrogen 14 mg/dL (9-16); Calcium 9.1 mg/dL (8.4-10.2); Carbon Dioxide 27 mmol/L (22-29); Chloride 108 mmol/L (96-108); Cholesterol 187 mg/dL (<200); Estimated Glomerular Filt Rate > 60; HDL Cholesterol 52 mg/dL (>40); Potassium 4.4 mmol/L (3.3-5.1); Sodium 142 mmol/L (135-145); Total Protein 7.0 g/dL (6.5-8.0); Triglycerides 70 mg/dL (<150)
[2025-05-12 10:56] LABS: Free T4 (Free Thyroxine) 0.96 ng/dL (0.71-1.85); Thyroid Stimulating Hormone 3.27 uIU/mL (0.32-4.0)
[2025-05-12 11:06] LABS: Folate 11.9 ng/mL (> or = 4.0); Vitamin B12 466 pg/mL (200-900)
[2025-05-12 11:12] LABS: Total Protein Urine Random < 7 mg/dL (<12)
== END 2025-05-12 07:29 | disposition home or self-care (01) ==
LOC: HO.LAB 07:28
PROVIDERS: PCP Internal Medicine; Visit Provider Internal Medicine
DX: R30.0 Dysuria (principal); E78.00 Pure hypercholesterolemia, unspecified; R80.9 Proteinuria, unspecified; R31.9 Hematuria, unspecified
CPT/HCPCS: 36415; 80053; 80061; 81003; 82607; 82746; 84156; 84439; 84443; 85025; 88112

== ENCOUNTER 2025-06-06 13:36 | Outpatient (AMB) | payer BC, SELFPAY ==
[2025-06-06 13:50] VITALS: BP 112/66; PULSE 68; RESP 18; O2SAT 98; BMI 26.8
--- NOTE | 2025-06-06 13:50 | MHC.PC.OV ---
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 He was last seen on May 08. The workup was initiated due to finding protein in his urine during a DOT test, and the patient reports he consumed an energy drink prior to that test. His past medical history includes being overweight, GERD, impaired glucose tolerance, generalized anxiety disorder, and prognathism. The patient reports ongoing intermittent diarrhea, which varies in consistency and seems to depend on his dietary intake. He also complains of some chest pains and stomach discomfort, which is also related to certain foods. His sister suggested he be evaluated for gluten intolerance. He is a current smoker, stating his use increases with stress, but at times he can go a month without smoking. Recent lab workup was negative, demonstrating resolution of the proteinuria on a urinalysis from May 12. Other tests, including blood count, electrolytes, renal function, blood sugar, liver function, vitamin B12, folic acid, and thyroid levels, were all within normal limits. Health Maintenance - Counseled on smoking cessation, explaining that smoking damages the stomach lining and can worsen his GI symptoms. - Advised on healthy eating to manage his gastrointestinal symptoms and overall health. - Discussed stress management techniques as an alternative to smoking. Social History - Tobacco use: He is a smoker, and reports that stress is a major trigger for his smoking. - Substance use: He reports drinking an energy drink before a prior DOT test. - Financial concerns: The patient expressed concern about having to pay a new deductible for an ultrasound if it is scheduled in the new year. Results - Labs: Blood count is normal with no anemia. - Chemistry: Electrolytes, renal function, and glucose are normal. - Liver Function Tests: Normal. - Lipid Panel: LDL of 121, HDL of 52. - Other Labs: Vitamin B12, folic acid, and thyroid function are all within normal limits. - Tests and Diagnostics: Urinalysis from May 12 was negative for protein. - Tests and Diagnostics: Spirometry was negative. [facility] Medical History GERD (gastroesophageal reflux disease) Alcohol abuse Polysubstance abuse Surgical History History of abdominal surgery Family History Father Medical history unknown Mother Medical history unknown Maternal Grandfather Throat cancer Maternal Uncle Gastric cancer Sister In good health Family/Other Depression Social History Housing: Apartment Alcohol intake: current Alcohol intake frequency: holidays/special occasions only Patient Tobacco Use Status: Current someday Tobacco user Tobacco use type: Cigarette Cigarettes Per Day: 1 Years Smoked: a week 2 cigarettes aday Packs per year/per ci.00 e-Cigarette/Vaping Use: Never Used Second Hand Smoke Exposure: No service: No Current occupational status: employed Current occupational exposures/hazards: No Cognitive needs: No Hearing needs: No Vision needs: No Questionnaire Thrive Questionnaire Date Thrive assessed: 06/06/25 I am a: Patient What is your living situation today?: I have a steady place to live Within the past 12 months, did the food you bought not last and you didn't have the money to get more?: I choose not to answer this question Within the past 12 months, did you worry whether your food would run out before you got money to buy more?: I choose not to answer this question Do you have trouble paying for medicines?: I choose not to answer this question Do you have trouble getting transportation to medical appointments?: No Do you have trouble paying your heating and electricity bill?: No Do you have trouble taking care of your child, family member or friend?: I choose not to answer this question Do you have trouble with day-to-day activities such as bathing, preparing meals, shopping, managing finances, etc.?: No Are you currently unemployed and looking for a job?: I choose not to answer this question Are you interested in more education?: I choose not to answer this question Currently or been in a relationship where the following occur: I choose not to answer THRIVE Score: 0 MARLA-7 AMB Questionnaire MARLA-7 Date MARLA - 7 assessed: 05/08/25 Source: Developed by Drs. Mamadou Alcala, Maeve Vidal, Gilberto Acosta and colleagues, with an educational francesco from [employer]. Review of Systems Narrative Review of Systems - Constitutional: Denies fevers. - Cardiovascular: Reports chest pains. - Gastrointestinal: Reports intermittent diarrhea, stomach discomfort, and heartburn which is dependent on his diet. Denies nausea and vomiting. Physical exam (Primary Care) Vital Signs: Last Vital Signs Pulse 68 06/06/25 13:50 Resp 18 06/06/25 13:50 BP 112/66 06/06/25 13:50 Pulse Ox 98 06/06/25 13:50 Oxygen Delivery Method Room Air 06/06/25 13:50 BMI result Body Mass Index 26.8 Tobacco/Smoking Status: Tobacco use Status Tobacco use date assessed 06/06/25 06/06/25 13:55 Patient Tobacco Use Status Current someday Tobacco 06/06/25 13:55 Tobacco use type Cigarette 06/06/25 13:55 e-Cigarette/Vaping Use Never Used 06/06/25 13:55 Thrive Assessment: Date of Thrive Assessment Date Thrive assessed 06/06/25 06/06/25 13:55 Currently or been in a relationship where the following occur: I choose not to answer Narrative Physical Exam Coding Level of Care Code Est Pt Level 4 (61427) Diagnoses GERD (gastroesophageal reflux disease) K21.9 Assessment & Plan Assessment & Plan (1) GERD (gastroesophageal reflux disease): Code(s): K21.9 - Gastro-esophageal reflux disease without esophagitis Category: Medical Plan Plan Patient was informed and verbally consented to the use of an ambient scribe for clinic note documentation during this visit. 1. Proteinuria The patient's initial finding of proteinuria has resolved, as confirmed by a negative urinalysis on May 12. This was likely a transient finding, possibly related to the patient's reported consumption of an energy drink. A letter will be provided to the patient confirming that the workup was negative and the issue has resolved. No further workup is indicated for this at present. 2. Gastrointestinal Symptoms (Abdominal Pain, Diarrhea, Gerd) The patient complains of intermittent diarrhea and stomach discomfort, which appears to respond to diet. An ultrasound of the kidneys is planned to further evaluate his symptoms, and a request was sent to expedite the scheduling due to the patient's insurance concerns. Discussed the use of omeprazole, which he has at home, for his acid reflux symptoms. Advised a healthy diet to manage symptoms. Testing for gluten intolerance can be considered later. 3. Tobacco Use Disorder The patient continues to smoke, often in response to stress, which is likely contributing to his GERD symptoms. Counseled the patient on the importance of smoking cessation, explaining how it damages the stomach lining. Advised him to find alternative, healthier coping mechanisms for stress. Discussion Notes I informed the patient that his workup for proteinuria was negative and that the condition has resolved. I will provide him with a letter for his records stating these findings. We discussed his gastrointestinal symptoms, including diarrhea and stomach upset, and their likely connection to his diet and smoking. I recommended an ultrasound of his kidneys and sent a message to the scheduling department to try to arrange it before the end of the year due to his concerns about his insurance deductible. I counseled him extensively on the importance of smoking cessation, explaining its negative effects on his stomach lining, and recommended healthy living through diet. Patient Instructions - All of your recent lab tests, including a repeat urine test, came back normal, and the protein in your urine has resolved. - We are ordering an ultrasound of your kidneys. Our office will contact you to schedule this appointment. - You must stop smoking. It is damaging your stomach and making your symptoms worse. Try to find other ways to manage stress. - Focus on eating a healthy diet, as this can help with your stomach upset and diarrhea. - Avoid drinking energy drinks, especially before medical tests. - You can continue to use the omeprazole you have at home for heartburn. Orders: Orders US renal BI Today R80.9 - Proteinuria, unspecified
== END 2025-06-06 14:59 | disposition home or self-care (01) ==
LOC: HO.HMCH 13:36
PROVIDERS: PCP Internal Medicine; Visit Provider Internal Medicine
DX: K21.9 Gastro-esophageal reflux disease without esophagitis (principal)